=== PATIENT | female | born 2000 | race Two or more races ===

== ENCOUNTER 2024-09-21 15:30 | Emergency (ER) | payer OTHER ==
[~2024-09-21] VITALS: Ht 165.1 cm; Wt 61.2 kg
[2024-09-21 16:12] VITALS: BP 112/72; O2SAT 99
[2024-09-21] MEDS ORDERED: 0.9 % SODIUM CHLORIDE 1,000 ML IV STA (16:35)
[2024-09-21] MEDS ORDERED: KETOROLAC TROMETHAMINE 30 MG VIAL IV STA (16:36)
[2024-09-21] MEDS ORDERED: KETOROLAC TROMETHAMINE 30 MG VIAL ONE (16:54)
[2024-09-21 17:18] LABS: BASO % 0.5 % (0.1-1.2); EOS # 0.28 (0.04-0.54); EOS % 6.4 % (0.7-7.0); LYMPH # 1.48 (1.18-3.74); LYMPH % 33.9 % (19.3-53.1); MEAN PLATELET VOLUME 9.80 fl (9.4-12.4); MONO # 0.37 (0.24-0.82); MONO % 8.5 % (4.7-12.5); NEUT # 2.20 (1.56-6.13); NEUT % 50.5 % (34.0-71.1); RED CELL DISTRIBUTION WIDTH 11.9 % (11.6-14.4)
[2024-09-21 17:45] LABS: BUN CREA RATIO 16.0 (7.0-25.0); CREATININE SERUM 0.62 mg/dL (0.55-1.02); GFR 117.28; GLUCOSE FASTING 87.0 mg/dL (65-100); OSMOLALITY SERUM 278.0 MOSM/KG (275-295)
== END 2024-09-21 22:26 | disposition home or self-care (01) ==
LOC: ER 15:57
DX: R10.32 Left lower quadrant pain (principal)